=== PATIENT | female | born 1975 | race Caucasian/White ===

== ENCOUNTER 2021-12-04 11:43 | Inpatient (IN) | payer MEDICAID ==
[~2021-12-04] VITALS: Ht 167.6 cm; Wt 117.7 kg
[2021-12-04] MEDS ORDERED: HALOPERIDOL 5 MG TABLET PO PRN (13:00)
[2021-12-04 13:37] LABS: COVID AG,FIA SOURCE NASAL SWAB
[2021-12-04 14:20] LABS: APPEARANCE,URINE CLEAR (CLEAR); BILIRUBIN,URINE NEGATIVE (NEGATIVE); GLUCOSE, URINE (UA) NEGATIVE (NEGATIVE); KETONES,URINE NEGATIVE (NEGATIVE); LEUKOCYTE ESTERASE ,URINE NEGATIVE (NEGATIVE); NITRATE,URINE NEGATIVE (NEGATIVE); OCCULT BLOOD,URINE NEGATIVE (NEGATIVE); PH,URINE 5.5 (5.0-8.0); PROTEIN,URINE NEGATIVE (NEGATIVE); SPECIFIC GRAVITIY, URINE 1.004 (1.003-1.030); UROBILINOGEN,URINE <=1.0 mg/dL (<=1.0)
[2021-12-04 14:39] LABS: AMPHET/METH SCREEN,URINE NEGATIVE (NEGATIVE); BARBITURATE SCREEN, URINE NEGATIVE (NEGATIVE); BENZODIAZEPINES SCREEN,URINE POSITIVE (NEGATIVE); CANNABINOID SCREEN,URINE NEGATIVE (NEGATIVE); COCAINE SCREEN,URINE NEGATIVE (NEGATIVE); METHADONE SCREEN, URINE NEGATIVE (NEGATIVE); OPIATE SCREEN,URINE NEGATIVE (NEGATIVE)
[2021-12-04 14:40] LABS: PHENCYCLIDINE SCREEN,URINE NEGATIVE (NEGATIVE)
[2021-12-04] MEDS: LORazepam 2 MG TABLET PO PRN (16:57)
[2021-12-04 17:29] VITALS: BP 137/83
[2021-12-04] MEDS: ZOLPIDEM TARTRATE 10 MG TABLET PO PRN (21:47)
[2021-12-05 00:59] VITALS: BP 132/76
[2021-12-05 06:41] LABS: BAND NEUTROPHILS % (MANUAL) 0 % (0-5)
[2021-12-05] MEDS ORDERED: ACETAMINOPHEN 325 MG TABLET PO PRN ×2 (06:45→13:45)
[2021-12-05 06:50] LABS: HEMATOCRIT 39.2 % (36-46); HEMOGLOBIN 13.3 g/dL (12.0-16.0); MEAN CORPUSCULAR HEMOGLOBIN 29.2 pg (26.0-34.0); MEAN CORPUSCULAR HGB CONC 33.9 G/dL (31.0-37.0); MEAN CORPUSCULAR VOLUME 86 fL (80-100); PLATELET COUNT (AUTO) 290 K/uL (150-450); RED BLOOD CELL COUNT(AUTO) 4.55 MIL/uL (4.00-5.20); RED CELL DISTRIBUTION WIDTH 13.6 % (11.5-14.5)
[2021-12-05 07:17] LABS: ALBUMIN 3.3 g/dL (3.4-5.0); BILIRUBIN,TOTAL 0.3 mg/dL (0.1-1.0); CALCIUM, TOTAL 8.8 mg/dL (8.8-10.5); CHOL/HDL RATIO 2.8 (3.9-5.7); FREE T4 (FREE THYROXINE) 0.94 ng/dL (0.76-1.46); POTASSIUM 4.1 mmol/L (3.5-5.1); THYROID STIMULATING HORMONE 1.89 uIU/mL (0.36-3.74); TOTAL PROTEIN, SERUM 6.6 g/dL (6.4-8.2)
[2021-12-05 08:07] VITALS: BP 121/81
[2021-12-05] MEDS: LISINOPRIL 5 MG TABLET PO SCH (08:10)
[2021-12-05] MEDS: LORazepam 2 MG TABLET PO PRN ×2 (08:10→21:56)
[2021-12-05 09:04] LABS: EOSINOPHILS % (MANUAL) 2 % (1-6); LYMPHOCYTES % (MANUAL) 23 % (22-44); MONOCYTES % (MANUAL) 11 % (2-9); SEGMENTED NEUTROPHILS % 64 % (40-70)
[2021-12-05] MEDS: BuPROPion HCL XL 150 MG ER TABLET PO SCH (13:12)
[2021-12-05] MEDS ORDERED: NICOTINE 14 MG/24 HOUR PATCH TD PRN (13:45)
[2021-12-05] MEDS ORDERED: MAG HYDROX/AL HYDROX/SIMETH ES 30 ML SUSPENSION UDCUP PO PRN (13:45)
[2021-12-05] MEDS ORDERED: ALBUTEROL SULFATE HFA 90 MCG/PUFF 8 GM INHALER IH PRN (13:45)
[2021-12-05] MEDS ORDERED: CloNIDine HCL 0.1 MG TABLET PO PRN (13:45)
[2021-12-05] MEDS ORDERED: IBUPROFEN 400 MG TABLET PO PRN (13:45)
[2021-12-05] MEDS ORDERED: MAGNESIUM HYDROXIDE SUSPENSION 30 ML UDCUP PO PRN (13:45)
[2021-12-05] MEDS ORDERED: GuaiFENesin/D-METHORPHAN [SUGAR-FREE] 200-20MG/10 ML SYRUP UDCUP PO PRN (13:45)
[2021-12-05] MEDS ORDERED: ONDANSETRON HCL 4 MG TABLET PO PRN (13:45)
[2021-12-05] MEDS ORDERED: DOCUSATE SODIUM 100 MG CAPSULE PO PRN (13:45)
[2021-12-05] MEDS ORDERED: PETROLATUM,WHITE 28 GM JELLY TP PRN (13:45)
[2021-12-05] MEDS ORDERED: LOPERAMIDE HCL 2 MG CAPSULE PO PRN (13:45)
[2021-12-05 16:10] VITALS: BP 117/75
[2021-12-05] MEDS: DULoxetine HCL 60 MG CAPSULE PO SCH (16:10)
[2021-12-05] MEDS: GABAPENTIN 300 MG CAPSULE PO SCH (16:10)
[2021-12-05 16:12] VITALS: BP 119/79
[2021-12-06 00:34] VITALS: BP 114/71
[2021-12-06 08:04] VITALS: BP 126/79
[2021-12-06] MEDS: GABAPENTIN 300 MG CAPSULE PO SCH ×2 (08:17→16:17)
[2021-12-06] MEDS: DULoxetine HCL 60 MG CAPSULE PO SCH ×2 (08:17→16:17)
[2021-12-06] MEDS: LORazepam 2 MG TABLET PO PRN ×2 (08:18→13:25)
[2021-12-06] MEDS: BuPROPion HCL XL 150 MG ER TABLET PO SCH (08:18)
[2021-12-06] MEDS: LISINOPRIL 5 MG TABLET PO SCH (08:18)
[2021-12-06] MEDS ORDERED: BUPR-50 PO (14:01)
[2021-12-06] MEDS ORDERED: GABA-1181 PO (14:01)
[2021-12-06] MEDS ORDERED: DULO-113 PO (14:01)
[2021-12-06 16:01] VITALS: BP 122/83
[2021-12-07 05:26] VITALS: BP 118/80
[2021-12-07] MEDS: DULoxetine HCL 60 MG CAPSULE PO SCH ×2 (08:37→16:19)
[2021-12-07] MEDS: LORazepam 2 MG TABLET PO PRN ×2 (08:37→17:25)
[2021-12-07] MEDS: LISINOPRIL 5 MG TABLET PO SCH (08:37)
[2021-12-07] MEDS: GABAPENTIN 300 MG CAPSULE PO SCH ×2 (08:37→16:19)
[2021-12-07] MEDS: BuPROPion HCL XL 150 MG ER TABLET PO SCH (08:37)
[2021-12-07 08:49] VITALS: BP 109/77
[2021-12-07 16:00] VITALS: BP 134/88
[2021-12-07] MEDS: ZOLPIDEM TARTRATE 10 MG TABLET PO PRN (21:30)
[2021-12-08 00:12] VITALS: BP 126/82
[2021-12-08] MEDS: DULoxetine HCL 60 MG CAPSULE PO SCH (07:58)
[2021-12-08] MEDS: GABAPENTIN 300 MG CAPSULE PO SCH (07:58)
[2021-12-08] MEDS: BuPROPion HCL XL 150 MG ER TABLET PO SCH (07:58)
[2021-12-08] MEDS: LISINOPRIL 5 MG TABLET PO SCH (07:58)
[2021-12-08] MEDS: LORazepam 2 MG TABLET PO PRN (08:06)
[2021-12-08 08:36] VITALS: BP 123/79
[2021-12-08] MEDS ORDERED: BUPR-49 PO (10:41)
[2021-12-08] MEDS ORDERED: DULO-113 PO (10:41)
[2021-12-08] MEDS ORDERED: GABA-1181 PO (10:41)
[2021-12-08] MEDS ORDERED: LISI-892 PO ×2 (10:55→12:01)
== END 2021-12-08 13:10 | disposition home or self-care (01) | DRG 751 ==
LOC: EMS 11:43 → B3A 14:05
PROVIDERS: ADMIT Psychiatry & Neurology Child & Adolescent Psychiatry; ATTEND Psychiatry & Neurology Child & Adolescent Psychiatry
DX: F33.2 Major depressive disorder, recurrent severe without psychotic features (principal); R45.851 Suicidal ideations; E66.01 Morbid (severe) obesity due to excess calories; Z20.822 Contact with and (suspected) exposure to COVID-19; F12.90 Cannabis use, unspecified, uncomplicated; F43.10 Post-traumatic stress disorder, unspecified; R10.13 Epigastric pain; Z91.51 Personal history of suicidal behavior; Z68.41 Body mass index [BMI] 40.0-44.9, adult; Z71.51 Drug abuse counseling and surveillance of drug abuser
CPT/HCPCS: 80053; 80061; 81003; 84439; 84443; 85007; 85027; 99285